=== PATIENT | male | born 1955 | race American Indian/Alaskan Native ===

== ENCOUNTER 2016-05-30 16:38 | Emergency (ER) | payer SELFPAY ==
--- NOTE | 2016-05-30 17:15 | Emergency Department Report ---
Stated Complaint: CHEST PAIN Time Seen by Provider: 05/30/16 17:03 - HPI History of Present Illness: 60-year-old male comes in for complaint of intermittent chest pains. Patient was seen by his primary care provider on Wednesday and was referred to Dr. Luis Manuel Rojas's industrial insulator for further evaluation. Family tried calling Dr. Levin. Office was not able to obtain an appointment. The was going to call on Wednesday to another industrial insulator but was told that her is having chest pain now so she advised him to come to the emergency room for further evaluation.patient denies any past medical history but does admit that his blood pressure has been borderline up and down but has not started any medication from his primary care provider - ROS Review of Systems: He is in no acute distress. Cardiovascular S1-S2 regular rate and rhythm respiratory clear to auscultation. - Exam Vital Signs: Patient is alert and oriented 3 cardiovascular S1-S2 regular rate and rhythm respiratory clear to auscultation bilateral MSE screening note: Focused history and physical exam performed. Due to findings the following was ordered: Labs ordered for chest pain. Patient be evaluated in main ER ED Medical Decision Making - Lab Data Result diagrams: 05/30/16 17:18 05/30/16 17:18 ED Disposition for MSE Condition: Stable
[2016-05-30 17:28] VITALS: BP 142/86
[2016-05-30 17:43] LABS: Basophils % (Auto) 0.9 % (0.0-1.8); Eosinophils % (Auto) 7.2 % (0.0-4.3); Hematocrit 43.7 % (35.5-45.6); Hemoglobin 14.5 gm/dl (11.8-15.2); Mean Corpuscular HGB Conc 33 % (32-34); Mean Corpuscular Hemoglobin 30 pg (28-32); Mean Corpuscular Volume 90 fl (84-94); Platelet Count 186 K/mm3 (140-440); Red Blood Count 4.85 M/mm3 (3.65-5.03); Red Cell Distribution Width 14.8 % (13.2-15.2); White Blood Count 4.8 K/mm3 (4.5-11.0)
[2016-05-30 17:52] LABS: Anion Gap 19 mmol/L; BUN/Creatinine Ratio 14.44; Blood Urea Nitrogen 13 mg/dL (9-20); Calcium 9.1 mg/dL (8.4-10.2); Carbon Dioxide 24 mmol/L (22-30); Chloride 103.9 mmol/L (98-107); Glucose 86 mg/dL (75-100); Potassium 4.5 mmol/L (3.6-5.0); Sodium 142 mmol/L (137-145)
[2016-05-30 17:59] LABS: Creatine Kinase MB 1.4 ng/mL (0.0-4.0)
--- NOTE | 2016-05-31 17:36 | ED Elopement Review ---
ED Pt Elopement review - Results review Lab results: Laboratory Tests 05/30/16 05/30/16 05/30/16 17:18 17:18 17:18 WBC 4.8 RBC 4.85 Hgb 14.5 Hct 43.7 MCV 90 MCH 30 MCHC 33 RDW 14.8 Plt Count 186 Lymph % (Auto) 42.0 H [place] % (Auto) 10.3 H Eos % (Auto) 7.2 H Baso % (Auto) 0.9 Lymph # 2.0 [place] # 0.5 Eos # 0.3 Baso # 0.0 Seg Neutrophils % 39.6 L Seg Neutrophils # 1.9 Sodium 142 Potassium 4.5 Chloride 103.9 Carbon Dioxide 24 Anion Gap 19 BUN 13 Creatinine 0.9 Estimated GFR > 60 BUN/Creatinine Ratio 14.44 Glucose 86 Calcium 9.1 Total Creatine Kinase 173 H CK-MB (CK-2) 1.4 CK-MB (CK-2) Rel Index 0.8 Troponin T 0.011 - Call Back decision Pt Call Back Decision: Pt to F/U with PMD
== END 2016-05-30 22:05 | disposition left against medical advice (07) ==
LOC: ED 16:38
DX: R07.9 Chest pain, unspecified (principal); Z53.21 Procedure and treatment not carried out due to patient leaving prior to being seen by health care provider
CPT/HCPCS: 36415; 80048; 82550; 82553; 84484; 85025; 93005; 93010

== ENCOUNTER 2017-12-22 10:43 | Outpatient (CLI) | payer BC ==
[2017-12-22 11:35] LABS: Basophils % (Auto) 1.1 % (0.0-1.8); Eosinophils # (Auto) 0.3 K/mm3 (0.0-0.4); Eosinophils % (Auto) 10.1 % (0.0-4.3); Hematocrit 44.8 % (35.5-45.6); Hemoglobin 14.6 gm/dl (11.8-15.2); Lymphocytes # (Auto) 1.4 K/mm3 (1.2-5.4); Lymphocytes % (Auto) 42.4 % (13.4-35.0); Mean Corpuscular HGB Conc 33 % (32-34); Mean Corpuscular Hemoglobin 30 pg (28-32); Mean Corpuscular Volume 92 fl (84-94); Monocytes # (Auto) 0.3 K/mm3 (0.0-0.8); Monocytes % (Auto) 9.8 % (0.0-7.3); Platelet Count 193 K/mm3 (140-440); Red Blood Count 4.85 M/mm3 (3.65-5.03); Red Cell Distribution Width 14.6 % (13.2-15.2)
[2017-12-22 11:45] LABS: Alanine Aminotransferase 18 units/L (7-56); Albumin 4.2 g/dL (3.9-5); BUN/Creatinine Ratio 13; Blood Urea Nitrogen 10 mg/dL (9-20); Calcium 9.3 mg/dL (8.4-10.2); Chol/HDL Ratio 3.02 %; HDL Cholesterol 69 mg/dL (40-59); Hemolysis Index 5; LDL Cholesterol,Direct 151 mg/dL (50-130)
== END 2017-12-22 10:44 | disposition home or self-care (01) ==
LOC: LAB 10:43
PROVIDERS: ATTEND Internal Medicine
DX: Z00.01 Encounter for general adult medical examination with abnormal findings (principal)
CPT/HCPCS: 36415; 80053; 80061; 82306; 83036; 84153; 84439; 84443; 85025

== ENCOUNTER 2018-06-24 15:47 | Outpatient (CLI) | payer BC | END 2018-06-24 15:48 | disposition home or self-care (01) | LOC: LAB 15:47 | PROVIDERS: ATTEND Urology | DX: N40.0 Benign prostatic hyperplasia without lower urinary tract symptoms (principal) | CPT/HCPCS: 36415; 84153 ==

== ENCOUNTER 2019-02-23 10:57 | Outpatient (CLI) | payer BC ==
[2019-02-23 11:33] LABS: Hematocrit 46.3 % (35.5-45.6); Hemoglobin 15.1 gm/dl (11.8-15.2); Mean Corpuscular HGB Conc 33 % (32-34); Mean Corpuscular Volume 94 fl (84-94); Platelet Count 175 K/mm3 (140-440); Red Cell Distribution Width 14.2 % (13.2-15.2)
[2019-02-23 11:46] LABS: Alanine Aminotransferase 17 units/L (7-56); Albumin 4.5 g/dL (3.9-5); BUN/Creatinine Ratio 13; Blood Urea Nitrogen 12 mg/dL (9-20); Calcium 9.3 mg/dL (8.4-10.2); Chol/HDL Ratio 2.76 %; HDL Cholesterol 77 mg/dL (40-59); Hemolysis Index 3; LDL Cholesterol,Direct 132 mg/dL (50-130)
[2019-02-27 13:20] LABS: Vitamin D, 25-OH, D2 <4 ng/mL
== END 2019-02-23 10:58 | disposition home or self-care (01) ==
LOC: LAB 10:57
PROVIDERS: ATTEND Internal Medicine
DX: Z13.220 Encounter for screening for lipoid disorders (principal); Z13.29 Encounter for screening for other suspected endocrine disorder; Z13.0 Encounter for screening for diseases of the blood and blood-forming organs and certain disorders involving the immune mechanism; Z13.228 Encounter for screening for other metabolic disorders; Z12.5 Encounter for screening for malignant neoplasm of prostate; Z13.21 Encounter for screening for nutritional disorder
CPT/HCPCS: 36415; 80053; 80061; 82306; 83036; 84153; 84443; 85027

== ENCOUNTER 2019-05-25 08:53 | Day surgery (SDC) | payer BC ==
[~2019-05-25 08:53] MED LIST: LIDOCAINE MPF (2%) 20 MG/1 ML VIAL 5 ML ONE; SODIUM CHLORIDE 0.9% 1000 ML 1,000 ML IV SCH
--- NOTE | 2019-05-25 12:41 | Anesthesia Consultation ---
Anesthesia Consult and Med Hx Date of service: 05/25/19 - Airway Anesthetic Teeth Evaluation: Good ROM Head & Neck: Adequate Mental/Hyoid Distance: Adequate Mallampati Class: Class II Intubation Access Assessment: Probably Good - Pulmonary Exam CTA: Yes - Cardiac Exam Cardiac Exam: RRR - Pre-Operative Health Status ASA Pre-Surgery Classification: ASA2 Proposed Anesthetic Plan: MAC - Pulmonary Hx Smoking: No - Cardiovascular System Hx Hypertension: No - Central Nervous System Hx Neuromuscular Disorder: No Hx Psychiatric Problems: No - Gastrointestinal Hx Gastroesophageal Reflux Disease: No - Endocrine Hx Renal Disease: No - Other Systems Hx Alcohol Use: No Hx Substance Use: No Hx Cancer: No - Additional Comments Anesthesia Medical History Comments: Patient denies previous anesthesia related complications
--- NOTE | 2019-05-25 12:42 | Anesthesia Day of Surgery ---
Anesthesia Day of Surgery - Day of Surgery Patient Examined: Yes Patient H&P Reviewed: Yes Patient is NPO: Yes
[2019-05-25] MEDS ORDERED: PROPOFOL 200 MG/20 ML VIAL IV ONE ×2 (12:44)
--- NOTE | 2019-05-25 13:07 | Short Stay Summary ---
Short Stay Documentation Date of service: 05/25/19 Narrative H&P: Pt is a 63 yo male who presents for screening colonoscopy; no new gi complaints/changes from clinic note - History H&P: obtained from office Past Medical History: other (see clinic note) Past Surgical History: Other (see clinic note) Social history: no significant social history - Allergies and Medications Current Medications: Allergies No Known Allergies Allergy (Unverified 05/30/16 17:08) Active Medications Sodium Chloride (Nacl 0.9% 1000 Ml) 1,000 mls @ 50 mls/hr IV DIRECT TANESHA - Physical exam General appearance: no acute distress Lungs: Clear to auscultation Heart: Regular rate Gastrointestinal: normal - Brief post op/procedure progress note Date of procedure: 05/25/19 Pre-op diagnosis: screening for colorectal cancer Post-op diagnosis: other (fair prep, internal hemorrhoids) Procedure: Colonoscopy Anesthesia: MAC Findings: Fair prep, internal hemorrhoids Surgeon: JASE CRUZ Estimated blood loss: none Pathology: none Specimen disposition: to lab Condition: stable - Disposition Condition at discharge: Good Disposition: DC-01 TO HOME OR SELFCARE Short Stay Discharge Plan Follow up with: GENET AYALA MD [Primary Care Provider] - 7 Days
--- NOTE | 2019-05-25 13:09 | Operative Report ---
Operative Report Operative Report: Colonoscopy Procedure Note Date of procedure: 05/25/2019 Endoscopist: William Salcedo Pre-op diagnosis: Screening for colorectal cancer Post-op diagnosis: Internal hemorrhoids Anesthesia: MAC Complications: No immediate complications Estimated blood loss: None Procedure: After consent was obtained, the patient was placed in the left lateral decubitus position. The olympus colonoscope was inserted into the patient's rectum under direct vision, and advanced to the cecum without difficulty. The patient tolerated the procedure well. The views of the mucosa were fair. The quality of prep was fair. The patient's vital signs were monitored continuously throughout the procedure. Findings: Internal hemorrhoids, otherwise unremarkable colonoscopy. Impression: 1. Fair prep 2. Internal hemorrhoids Recommendations: -repeat colonoscopy for screening purposes in 5 years due to fair prep
[2019-05-25 14:37] VITALS: BP 111/63
== END 2019-05-25 08:54 | disposition home or self-care (01) ==
LOC: GIO 08:53
PROVIDERS: ATTEND Internal Medicine Gastroenterology
DX: Z12.11 Encounter for screening for malignant neoplasm of colon (principal); K64.8 Other hemorrhoids; Z79.899 Other long term (current) drug therapy; Z98.890 Other specified postprocedural states
CPT/HCPCS: 45378; J2704; J7030

== ENCOUNTER 2020-02-15 16:06 | Outpatient (CLI) | payer BC ==
[2020-02-15 16:58] LABS: BUN/Creatinine Ratio 15; Blood Urea Nitrogen 12 mg/dL (9-20); Calcium 9.6 mg/dL (8.4-10.2); Hemolysis Index 13
== END 2020-02-15 16:07 | disposition home or self-care (01) ==
LOC: LAB 16:06
PROVIDERS: ATTEND Urology
DX: N40.1 Benign prostatic hyperplasia with lower urinary tract symptoms (principal)
CPT/HCPCS: 36415; 80048

== ENCOUNTER 2020-05-08 10:23 | Inpatient (IN) | payer BC ==
--- NOTE | 2020-05-08 10:39 | Event Note ---
ED Screening Note ED Screening Note: Recently traveled from [facility] Weakness, fatigue, no appetite No chest pain or shortness of breath Hypoxia at 89 to 91% on room air Patient placed on oxygen This initial assessment/diagnostic orders/clinical plan/treatment(s) is/are subject to change based on patients health status, clinical progression and re- assessment by fellow clinical providers in the ED. Further treatment and workup at subsequent clinical providers discretion. Patient/guardian urged not to elope from the ED as their condition may be serious if not clinically assessed and managed. Initial orders include: Labs, EKG, chest x-ray Charge nurse Tracie notified that patient needs room GINA
--- NOTE | 2020-05-08 11:43 | XRay Report ---
CHEST 2 VIEWS INDICATION: weakness, hypoxia. COMPARISON: None FINDINGS: Support devices: None. Heart: Within normal limits. Lungs/pleura: Bronchovascular markings in the right lower lobe are slightly prominent. This has the a ppearance of atelectasis or scarring over infiltrate. The left lung is generally clear. No pleural e ffusion or pneumothorax. Additional findings: None. IMPRESSION: Right lower lobe opacity as described. Signer Name: Cody Jack Jr, MD Signed: 05/08/2020 11:38 AM Workstation Name: [id number]
[2020-05-08 12:52] LABS: Basophils # (Auto) 0.1 K/mm3 (0.0-0.1); Hematocrit 42.1 % (35.5-45.6); Hemoglobin 14.5 gm/dl (11.8-15.2); Lymphocytes # (Auto) 0.8 K/mm3 (1.2-5.4); Lymphocytes % (Auto) 14.3 % (13.4-35.0); Mean Corpuscular HGB Conc 34 % (32-34); Mean Corpuscular Volume 91 fl (84-94); Monocytes # (Auto) 0.6 K/mm3 (0.0-0.8); Monocytes % (Auto) 10.2 % (0.0-7.3); Platelet Count 197 K/mm3 (140-440); Red Blood Count 4.63 M/mm3 (3.65-5.03); Red Cell Distribution Width 14.4 % (13.2-15.2)
[2020-05-08 13:16] LABS: Alanine Aminotransferase 49 units/L (7-56); Albumin 3.6 g/dL (3.9-5); BUN/Creatinine Ratio 10; Blood Urea Nitrogen 11 mg/dL (9-20); Calcium 9.1 mg/dL (8.4-10.2); Hemolysis Index 6
[2020-05-08] MEDS ORDERED: cefTRIAXone/NS 2 GM/100 ML 2 GM/100 ML BAG IV ONE (13:27)
[2020-05-08] MEDS ORDERED: ACETAMINOPHEN 325 MG TAB PO ONE (13:27)
[2020-05-08] MEDS ORDERED: AZITHROMYCIN 500 MG in SODIUM CHLORIDE 0.9% 250ML 250 ML IV ONE (13:27)
[2020-05-08] MEDS ORDERED: SODIUM CHLORIDE 0.9% 1000 ML 1,000 ML IV ONE (13:28)
[2020-05-08] MEDS ORDERED: dexAMETHasone 4 MG/ML VIAL IV ONE (14:56)
--- NOTE | 2020-05-08 15:25 | Emergency Department Report ---
- General Chief complaint: Weakness Stated complaint: WEAKNESS, LOSS OF APPETITE Time Seen by Provider: 05/08/20 10:36 Source: patient, family Mode of arrival: Ambulatory Limitations: No Limitations - History of Present Illness Initial comments: 64-year-old male with a past medical history of BPH presents to the hospital with complaints of generalized weakness and no appetite x1 week. Respiratory rate was noted to be labored in triage patient had a room air saturation of 89 to 91%. Patient however, does not complain of shortness of breath, chest pain, cough, or fever. He is noted coughing during exam but states that because his throat feels dry. He reports that he had a negative Covid test on May 01. Patient thought his symptoms would have something to do with his prostate however, he does not endorse difficulty urinating, dysuria, or abdominal pain. - Related Data Home Medications Medication Instructions Recorded Confirmed Last Taken Mirabegron [Myrbetriq] 50 mg PO QDAY 05/25/19 05/25/19 05/24/19 Tamsulosin [Flomax] 0.8 mg PO QDAY 05/25/19 05/25/19 05/24/19 valACYclovir [Valtrex] 500 mg PO DAILY 05/25/19 05/25/19 05/24/19 Allergies Allergy/AdvReac Type Severity Reaction Status Date / Time No Known Allergies Allergy Unverified 05/30/16 17:08 ED Review of Systems ROS: Stated complaint: WEAKNESS, LOSS OF APPETITE Other details as noted in HPI Comment: All other systems reviewed and negative ED Past Medical Hx - Past Medical History Hx Hypertension: No Hx Renal Disease: No Additional medical history: ENLARGED PROSTRATE - Surgical History Additional Surgical History: prostate 2010 - Social History Smoking Status: Never Smoker Substance Use Type: None - Medications Home Medications: Home Medications Medication Instructions Recorded Confirmed Last Taken Type Mirabegron [Myrbetriq] 50 mg PO QDAY 05/25/19 05/25/19 05/24/19 History Tamsulosin [Flomax] 0.8 mg PO QDAY 05/25/19 05/25/19 05/24/19 History valACYclovir [Valtrex] 500 mg PO DAILY 05/25/19 05/25/19 05/24/19 History ED Physical Exam - General Limitations: No Limitations - Other Other exam information: General: No acute distress Head: Atraumatic Eyes: normal appearance Neck: Normal appearance, no midline tenderness Chest: Clear to auscultation bilaterally CV: Regular rate and rhythm Abdomen: Soft, normal bowel sounds, nontender, nondistended, no rebound or guarding Back: Normal inspection Extremity: Normal inspection, full range of motion Neuro: Alert O x 3, no facial asymmetry, speech clear, no gross motor sensory deficit Psych: Appropriate behavior Skin: No rash ED Course Vital Signs 05/08/20 10:31 Temperature 99.9 F H Pulse Rate 93 H Respiratory 22 Rate Blood Pressure 123/70 O2 Sat by Pulse 91 Oximetry ED Medical Decision Making - Lab Data Result diagrams: 05/08/20 12:13 05/08/20 12:13 Lab Results 05/08/20 05/08/20 05/08/20 Range/Units 12:13 12:13 12:13 WBC 5.6 (4.5-11.0) K/mm3 RBC 4.63 (3.65-5.03) M/mm3 Hgb 14.5 (11.8-15.2) gm/dl Hct 42.1 (35.5-45.6) % MCV 91 (84-94) fl MCH 31 (28-32) pg MCHC 34 (32-34) % RDW 14.4 (13.2-15.2) % Plt Count 197 (140-440) K/mm3 Lymph % (Auto) 14.3 (13.4-35.0) % Price % (Auto) 10.2 H (0.0-7.3) % Eos % (Auto) 0.0 (0.0-4.3) % Baso % (Auto) 1.0 (0.0-1.8) % Lymph # (Auto) 0.8 L (1.2-5.4) K/mm3 Price # (Auto) 0.6 (0.0-0.8) K/mm3 Eos # (Auto) 0.0 (0.0-0.4) K/mm3 Baso # (Auto) 0.1 (0.0-0.1) K/mm3 Seg Neutrophils % 74.5 H (40.0-70.0) % Seg Neutrophils # 4.2 (1.8-7.7) K/mm3 D-Dimer 798.85 H (0-234) ng/mlDDU Sodium 147 H (137-145) mmol/L Potassium 3.8 (3.6-5.0) mmol/L Chloride 107.5 H (98-107) mmol/L Carbon Dioxide 27 (22-30) mmol/L Anion Gap 16 mmol/L BUN 11 (9-20) mg/dL Creatinine 1.1 (0.8-1.3) mg/dL Estimated GFR > 60 ml/min BUN/Creatinine Ratio 10 % Glucose 131 H (75-100) mg/dL Lactic Acid (0.7-2.0) mmol/L Calcium 9.1 (8.4-10.2) mg/dL Ferritin (30.0-300.0) ng/mL Total Bilirubin 0.50 (0.1-1.2) mg/dL AST 72 H (5-40) units/L ALT 49 (7-56) units/L Alkaline Phosphatase 59 (35-129) units/L Lactate Dehydrogenase 448 H (91-180) units/L Troponin T < 0.010 (0.00-0.029) ng/mL C-Reactive Protein 7.30 H (0.00-1.30) mg/dL NT-Pro-B Natriuret Pep 18.79 (0-900) pg/mL Total Protein 8.4 H (6.3-8.2) g/dL Albumin 3.6 L (3.9-5) g/dL Albumin/Globulin Ratio 0.8 % Procalcitonin (<0.15) ng/mL 05/08/20 05/08/20 05/08/20 Range/Units 12:13 12:13 12:13 WBC (4.5-11.0) K/mm3 RBC (3.65-5.03) M/mm3 Hgb (11.8-15.2) gm/dl Hct (35.5-45.6) % MCV (84-94) fl MCH (28-32) pg MCHC (32-34) % RDW (13.2-15.2) % Plt Count (140-440) K/mm3 Lymph % (Auto) (13.4-35.0) % Price % (Auto) (0.0-7.3) % Eos % (Auto) (0.0-4.3) % Baso % (Auto) (0.0-1.8) % Lymph # (Auto) (1.2-5.4) K/mm3 Price # (Auto) (0.0-0.8) K/mm3 Eos # (Auto) (0.0-0.4) K/mm3 Baso # (Auto) (0.0-0.1) K/mm3 Seg Neutrophils % (40.0-70.0) % Seg Neutrophils # (1.8-7.7) K/mm3 D-Dimer (0-234) ng/mlDDU Sodium (137-145) mmol/L Potassium (3.6-5.0) mmol/L Chloride (98-107) mmol/L Carbon Dioxide (22-30) mmol/L Anion Gap mmol/L BUN (9-20) mg/dL Creatinine (0.8-1.3) mg/dL Estimated GFR ml/min BUN/Creatinine Ratio % Glucose (75-100) mg/dL Lactic Acid 2.90 H* (0.7-2.0) mmol/L Calcium (8.4-10.2) mg/dL Ferritin 1993.0 H (30.0-300.0) ng/mL Total Bilirubin (0.1-1.2) mg/dL AST (5-40) units/L ALT (7-56) units/L Alkaline Phosphatase (35-129) units/L Lactate Dehydrogenase (91-180) units/L Troponin T (0.00-0.029) ng/mL C-Reactive Protein (0.00-1.30) mg/dL NT-Pro-B Natriuret Pep (0-900) pg/mL Total Protein (6.3-8.2) g/dL Albumin (3.9-5) g/dL Albumin/Globulin Ratio % Procalcitonin 0.13 (<0.15) ng/mL - Radiology Data Radiology results: report reviewed CHEST 2 VIEWS INDICATION: weakness, hypoxia. COMPARISON: None FINDINGS: Support devices: None. Heart: Within normal limits. Lungs/pleura: Bronchovascular markings in the right lower lobe are slightly prominent. This has the appearance of atelectasis or scarring over infiltrate. The left lung is generally clear. No pleural effusion or pneumothorax. Additional findings: None. IMPRESSION: Right lower lobe opacity as described. - Medical Decision Making 64-year-old male with history of BPH presents to the hospital with weakness, fatigue, decreased appetite. The patient does not have any respiratory symptoms he does have visible tachypnea, hypoxia monitor, chest x-ray significant for right lower lobe infiltrate. Patient placed in respiratory isolation with Covid test protocol ordered. Rocephin and azithromycin ordered for community- acquired pneumonia. Dexamethasone 6 mg IV x1. ID has been consulted. O2 saturation improved with supplemental nasal cannula oxygen. Patient will be admitted to the hospital service for further treatment Critical Care Time: No Critical care attestation.: If time is entered above; I have spent that time in minutes in the direct care of this critically ill patient, excluding procedure time. ED Disposition Clinical Impression: Pneumonia, Suspected COVID-19 virus infection, Hypoxia Disposition: OP ADMIT IP TO THIS HOSP Is pt being admited?: Yes Condition: Stable Instructions: Bacterial Pneumonia (ED) Time of Disposition: 15:51 (Dr Shook/hosp)
--- NOTE | 2020-05-08 15:29 | History and Physical Report ---
History of Present Illness Chief complaint: I have not been feeling well History of present illness: 64 YO Male with BPH presents to ED for evaluation. Patient states that he has "not been feeling well" over the past 1 week. Patient reports loss of appetite, fatigue, malaise, decreased exercise tolerance, loss of sense of smell, loss of sense of taste, dry cough. Patient transported to [facility] via private vehicle for further care and evaluation of the aforementioned symptoms. The patient was seen and evaluated in the emergency department. All lab and imaging studies reviewed. The patient was found to have a pulse oximetry of 86% with exertion while on room air which is consistent with acute hypoxemic respiratory failure. Chest x-ray also revealed pneumonia. The patient was admitted to the medical floor and initiated on pneumonia protocol as well as coronavirus protocol. The patient was placed on submental oxygen in the emergency department with mild improvement in symptoms. Patient denies fever, chills, chest pain, palpitations, skin rash, recent ill contacts, or known exposure to COVID-19. No prior admission for review. All medication listed at time of admission has been reconciled. Advanced care planning conducted in ED. Past History Past Medical History: other (See HPI) Past Surgical History: Other (Prostate surgery) Social history: , lives with family. denies: smoking, alcohol abuse, prescription drug abuse Family history: no significant family history Medications and Allergies Allergies Allergy/AdvReac Type Severity Reaction Status Date / Time No Known Allergies Allergy Unverified 05/30/16 17:08 Home Medications Medication Instructions Recorded Confirmed Last Taken Type Mirabegron [Myrbetriq] 50 mg PO QDAY 05/25/19 05/25/19 05/24/19 History Tamsulosin [Flomax] 0.8 mg PO QDAY 05/25/19 05/25/19 05/24/19 History valACYclovir [Valtrex] 500 mg PO DAILY 05/25/19 05/25/19 05/24/19 History Review of Systems Constitutional: fatigue, weakness, malaise, no weight loss, no weight gain, no fever Ears, nose, mouth and throat: no ear pain, no ear discharge, no tinnitis, no decreased hearing, no nose pain Cardiovascular: no chest pain, no orthopnea, no palpitations Respiratory: cough, no hemoptysis Gastrointestinal: no nausea, no vomiting, no diarrhea, no constipation Rectal: no pain, no incontinence, no bleeding Musculoskeletal: no neck stiffness, no neck pain, no shooting arm pain Integumentary: no rash, no pruritis, no redness, no sores, no wounds Neurological: no head injury, no transient paralysis, no tingling, no syncope, no tremors Psychiatric: no anxiety, no memory loss, no sleep disturbances, no change in libido, no suicidal ideation Endocrine: no cold intolerance, no heat intolerance, no polyphagia, no polydipsia, no nocturia, no excessive sweating Hematologic/Lymphatic: no easy bruising, no easy bleeding, no lymphadenopathy, no lymphedema Allergic/Immunologic: no urticaria, no allergic rhinitis, no persistent infections, no anaphylaxis, no angioedema Exam - Constitutional Vitals: Temp Pulse Resp BP Pulse Ox 99.9 F H 93 H 22 123/70 91 05/08/20 10:31 05/08/20 10:31 05/08/20 10:31 05/08/20 10:31 05/08/20 10:31 General appearance: Present: mild distress (Unicompartmental) - EENT Eyes: Present: PERRL ENT: hearing intact - Neck Neck: Present: supple - Respiratory Respiratory effort: labored, accessory muscle use Respiratory: bilateral: diminished, rhonchi - Cardiovascular Heart Sounds: Present: S1 & S2. Absent: rub, click - Extremities Extremities: pulses symmetrical, No edema Peripheral Pulses: within normal limits - Abdominal General gastrointestinal: Present: soft, non-tender, non-distended, normal bowel sounds Male genitourinary: Present: normal - Integumentary Integumentary: Present: clear, warm, dry - Musculoskeletal Musculoskeletal: generalized weakness - Psychiatric Psychiatric: appropriate mood/affect, intact judgment & insight - Neurologic Neurologic: CNII-XII intact, moves all extremities HEART Score - HEART Score Troponin: Troponin T < 0.010 ng/mL (0.00-0.029) 05/08/20 12:13 Results - Labs CBC & Chem 7: 05/08/20 12:13 05/08/20 12:13 Labs: Abnormal lab results 05/08/20 05/08/20 05/08/20 Range/Units 12:13 12:13 12:13 [place] % (Auto) 10.2 H (0.0-7.3) % Lymph # (Auto) 0.8 L (1.2-5.4) K/mm3 Seg Neutrophils % 74.5 H (40.0-70.0) % D-Dimer 798.85 H (0-234) ng/mlDDU Sodium 147 H (137-145) mmol/L Chloride 107.5 H (98-107) mmol/L Glucose 131 H (75-100) mg/dL Lactic Acid (0.7-2.0) mmol/L Ferritin (30.0-300.0) ng/mL AST 72 H (5-40) units/L Lactate Dehydrogenase 448 H (91-180) units/L C-Reactive Protein 7.30 H (0.00-1.30) mg/dL Total Protein 8.4 H (6.3-8.2) g/dL Albumin 3.6 L (3.9-5) g/dL 05/08/20 05/08/20 Range/Units 12:13 12:13 [place] % (Auto) (0.0-7.3) % Lymph # (Auto) (1.2-5.4) K/mm3 Seg Neutrophils % (40.0-70.0) % D-Dimer (0-234) ng/mlDDU Sodium (137-145) mmol/L Chloride (98-107) mmol/L Glucose (75-100) mg/dL Lactic Acid 2.90 H* (0.7-2.0) mmol/L Ferritin 1993.0 H (30.0-300.0) ng/mL AST (5-40) units/L Lactate Dehydrogenase (91-180) units/L C-Reactive Protein (0.00-1.30) mg/dL Total Protein (6.3-8.2) g/dL Albumin (3.9-5) g/dL Assessment and Plan - Patient Problems (1) Acute hypoxemic respiratory failure Current Visit: Yes Status: Acute Plan to address problem: Chest x-ray, supplemental oxygen, pulse oximetry, nebulizer therapy, prone positioning while in bed, noninvasive positive pressure ventilation as clinically indicated. (2) Pneumonia Current Visit: Yes Status: Acute Plan to address problem: Pneumonia protocol: Chest x-ray, CBC, CMP, IV antibiotic therapy, nebulizer therapy, supplemental oxygen, pulse oximetry, blood culture. (3) Suspected 2019 novel coronavirus infection Current Visit: Yes Status: Acute Plan to address problem: Coronavirus protocol: Contact precautions, isolation precautions, supplemental oxygen, pulse oximetry, nebulizer therapy, prone positioning while in bed, (4) BPH (benign prostatic hyperplasia) Current Visit: Yes Status: Acute Plan to address problem: Continue Flomax, supportive care. (5) DVT prophylaxis Current Visit: Yes Status: Acute Plan to address problem: SCD to bilateral lower extremities while in bed, prophylactic anticoagulation. (6) Advance care planning Current Visit: Yes Status: Acute Plan to address problem: Disease education conducted, patient is full code, prognosis discussed, care plan discussed, patient knowledges understanding and agreement with care plan, +30 minutes.
[2020-05-08] MEDS ORDERED: ONDANSETRON 4 MG/2 ML INJ IV PRN (15:30)
[2020-05-08] MEDS ORDERED: ALBUTEROL 2.5 MG/3 ML NEBU IH PRN (15:30)
[2020-05-08] MEDS ORDERED: ACETAMINOPHEN 325 MG TAB PO PRN (15:30)
[2020-05-08] MEDS ORDERED: SODIUM CHLORIDE 0.9% 1000 ML IV SOLN IV ONE (16:03)
[2020-05-08] MEDS: methylPREDNISolone Sod Succinate 40 MG/1 ML INJ IV SCH (20:50)
[2020-05-08] MEDS: FAMOTIDINE 10 MG TAB PO SCH (22:12)
[2020-05-08] MEDS: valACYclovir 500 MG TAB PO SCH (22:15)
[2020-05-09] MEDS: methylPREDNISolone Sod Succinate 40 MG/1 ML INJ IV SCH ×3 (02:11→21:44)
[2020-05-09 03:18] LABS: Bilirubin,Urine NEG (Negative); Blood,Urine SM (Negative); Color,Urine Yellow (Yellow); RBC,Urine < 1.0 /HPF (0.0-6.0); Urobilinogen,Urine < 2.0 mg/dL (<2.0)
[2020-05-09 06:18] LABS: Basophils % (Auto) 0.4 % (0.0-1.8); Hemoglobin 12.3 gm/dl (11.8-15.2); Lymphocytes # (Auto) 0.6 K/mm3 (1.2-5.4); Mean Corpuscular HGB Conc 33 % (32-34); Mean Corpuscular Volume 93 fl (84-94); Monocytes # (Auto) 0.4 K/mm3 (0.0-0.8); Monocytes % (Auto) 8.6 % (0.0-7.3); Platelet Count 168 K/mm3 (140-440); Red Blood Count 3.98 M/mm3 (3.65-5.03); Red Cell Distribution Width 14.3 % (13.2-15.2)
[2020-05-09 06:41] LABS: BUN/Creatinine Ratio 12; Blood Urea Nitrogen 11 mg/dL (9-20); Calcium 8.7 mg/dL (8.4-10.2); Hemolysis Index 7
[2020-05-09] MEDS: FAMOTIDINE 10 MG TAB PO SCH ×2 (09:54→21:43)
[2020-05-09] MEDS: valACYclovir 500 MG TAB PO SCH (09:54)
[2020-05-09] MEDS: TAMSULOSIN 0.4 MG CAP PO SCH (09:55)
--- NOTE | 2020-05-09 12:41 | Consultation ---
History of Present Illness - Reason for Consult Consult date: 05/09/20 COVID PUI Requesting physician: CESAR SANTIAGO - History of Present Illness The patient is a 64-year-old male admitted to the hospital with fatigue, malaise, loss of smell, loss of taste, cough and shortness of breath for the last 1 week. Upon evaluation in the emergency room, he was noted to have hypoxia on ambulation. Chest x-ray revealed possible pneumonia. COVID-19 test was ordered and is pending. Infectious diseases was consulted for additional evaluation. He had a low-grade temperature on admission, no fever today. He is on supplemental oxygen by nasal cannula at 2 L/min. Labs revealed no leukocytosis, mildly elevated D-dimer, elevated ferritin, CRP. Procalcitonin was 0.13. Review of Systems: reviewed in the chart, unable to obtain, minimize risk of transmission Past History Past Medical History: other (See HPI) Past Surgical History: Other (Prostate surgery) Social history: , lives with family. denies: smoking, alcohol abuse, prescription drug abuse Family history: no significant family history Medications and Allergies Allergies Allergy/AdvReac Type Severity Reaction Status Date / Time No Known Allergies Allergy Unverified 05/30/16 17:08 Home Medications Medication Instructions Recorded Confirmed Last Taken Type Mirabegron [Myrbetriq] 50 mg PO QDAY 05/25/19 05/25/19 05/24/19 History Tamsulosin [Flomax] 0.8 mg PO QDAY 05/25/19 05/25/19 05/24/19 History valACYclovir [Valtrex] 500 mg PO DAILY 05/25/19 05/25/19 05/24/19 History Active Meds: Active Medications Acetaminophen (Acetaminophen 325 Mg Tab) 650 mg PO Q4H PRN PRN Reason: Pain MILD(1-3)/Fever >100.5/ANTHONY Albuterol (Albuterol 2.5 Mg/3 Ml Nebu) 2.5 mg IH Q4HRT PRN PRN Reason: Shortness Of Breath Famotidine (Famotidine 10 Mg Tab) 10 mg PO BID [facility] Last Admin: 05/09/20 09:54 Dose: 10 mg Documented by: Ceftriaxone Sodium (Rocephin/Ns 2 Gm/100 Ml) 2 gm in 100 mls @ 200 mls/hr IV Q24H TANESHA; Protocol Stop: 05/10/20 15:59 Azithromycin 500 mg/ Sodium (Chloride) 250 mls @ 250 mls/hr IV Q24H [facility]; Protocol Stop: 05/10/20 15:59 Methylprednisolone Sodium Succinate (Methylprednisolone Sod Succinate 40 Mg/1 Ml Inj) 40 mg IV Q8H [facility] Last Admin: 05/09/20 10:07 Dose: 40 mg Documented by: Miscellaneous Medication (Mirabegron [Myrbetriq]) 50 mg PO QDAY [facility] Ondansetron HCl (Ondansetron 4 Mg/2 Ml Inj) 4 mg IV Q8H PRN PRN Reason: Nausea And Vomiting Sodium Chloride (Sodium Chloride 0.9% 10 Ml Flush Syringe) 10 ml IV BID [facility] Last Admin: 05/09/20 09:58 Dose: 10 ml Documented by: Sodium Chloride (Sodium Chloride 0.9% 10 Ml Flush Syringe) 10 ml IV PRN PRN PRN Reason: LINE FLUSH Last Admin: 05/09/20 02:11 Dose: 10 ml Documented by: Tamsulosin HCl (Tamsulosin 0.4 Mg Cap) 0.8 mg PO QDAY [facility] Last Admin: 05/09/20 09:55 Dose: 0.8 mg Documented by: Valacyclovir HCl (Valacyclovir 500 Mg Tab) 500 mg PO DAILY [facility] Last Admin: 05/09/20 09:54 Dose: 500 mg Documented by: Physical Examination - Physical Exam Narrative exam: Physical Exam (reviewed in chart to minimize risk of transmission) Constitutional: deferred Head, Ears, Nose: deferred Eyes: deferred Neck: deferred Oral: deferred Cardiovascular: deferred Respiratory: deferred GI: deferred Musculoskeletal: deferred Skin: deferred Hem/Lymphatic: deferred Psych: deferred Neurological: deferred - Constitutional Vitals: Vital Signs Temp Pulse Resp BP Pulse Ox 98.0 F 63 18 120/71 96 05/09/20 05:24 05/09/20 05:24 05/09/20 05:24 05/09/20 05:24 05/09/20 09:39 Temperature -Last 24 Hours Temperature 98.0 F Temperature 97.8 F Results - Labs CBC & Chem 7: 05/09/20 04:24 05/09/20 04:24 Labs: Abnormal lab results 1205/08/20 05/08/20 Range/Units 12:13 12:13 12:13 Lymph % (Auto) (13.4-35.0) % [place] % (Auto) 10.2 H (0.0-7.3) % Lymph # (Auto) 0.8 L (1.2-5.4) K/mm3 Seg Neutrophils % 74.5 H (40.0-70.0) % D-Dimer 798.85 H (0-234) ng/mlDDU Sodium 147 H (137-145) mmol/L Chloride 107.5 H (98-107) mmol/L Glucose 131 H (75-100) mg/dL Lactic Acid (0.7-2.0) mmol/L Ferritin (30.0-300.0) ng/mL AST 72 H (5-40) units/L Lactate Dehydrogenase 448 H (91-180) units/L C-Reactive Protein 7.30 H (0.00-1.30) mg/dL Total Protein 8.4 H (6.3-8.2) g/dL Albumin 3.6 L (3.9-5) g/dL 05/08/20 05/08/20 05/09/20 Range/Units 12:13 12:13 04:24 Lymph % (Auto) 12.0 L (13.4-35.0) % [place] % (Auto) 8.6 H (0.0-7.3) % Lymph # (Auto) 0.6 L (1.2-5.4) K/mm3 Seg Neutrophils % 79.0 H (40.0-70.0) % D-Dimer (0-234) ng/mlDDU Sodium (137-145) mmol/L Chloride (98-107) mmol/L Glucose (75-100) mg/dL Lactic Acid 2.90 H* (0.7-2.0) mmol/L Ferritin 1993.0 H (30.0-300.0) ng/mL AST (5-40) units/L Lactate Dehydrogenase (91-180) units/L C-Reactive Protein (0.00-1.30) mg/dL Total Protein (6.3-8.2) g/dL Albumin (3.9-5) g/dL 05/09/20 Range/Units 04:24 Lymph % (Auto) (13.4-35.0) % [place] % (Auto) (0.0-7.3) % Lymph # (Auto) (1.2-5.4) K/mm3 Seg Neutrophils % (40.0-70.0) % D-Dimer (0-234) ng/mlDDU Sodium 146 H (137-145) mmol/L Chloride 112.8 H (98-107) mmol/L Glucose 152 H (75-100) mg/dL Lactic Acid (0.7-2.0) mmol/L Ferritin (30.0-300.0) ng/mL AST (5-40) units/L Lactate Dehydrogenase (91-180) units/L C-Reactive Protein (0.00-1.30) mg/dL Total Protein (6.3-8.2) g/dL Albumin (3.9-5) g/dL - Imaging and Cardiology Chest x-ray: report reviewed, image reviewed (right sided infiltrate) Assessment and Plan Cultures: SARS CoV2 PCR: Pending Blood culture: No growth A/P: 64/M with: #Right pneumonia: noted on CXR. WBC normal. Procal is low. #Acute hypoxic respiratory failure: On supplemental oxygen by nasal cannula. Recs: -High suspicion for COVID-19, if positive, start remdesivir and discontinue antibiotics since procalcitonin is low -Agree with empiric steroids Brigitte Orellana MD, FACP [facility] ([facility]) O: [phone] F: [phone]
[2020-05-09] MEDS ORDERED: AZITHROMYCIN 500 MG in SODIUM CHLORIDE 0.9% 250ML 250 ML IV SCH (16:00)
[2020-05-09] MEDS ORDERED: cefTRIAXone/NS 2 GM/100 ML 2 GM/100 ML BAG IV SCH (16:00)
--- NOTE | 2020-05-09 17:27 | Progress Note ---
Assessment and Plan --Acute hypoxemic respiratory failure Due to covid19 PNA cont supplemental oxygen, pulse oximetry, nebulizer therapy, prone positioning while in bed, noninvasive positive pressure ventilation as clinically indicated. -- RLL Pneumonia due to COVID 19 cont nebulizer therapy, supplemental oxygen, pulse oximetry, start on dexamethasone, will follow ID recommendation monitor inflammatory markers --2019 novel coronavirus infection COVID 19 PCR positive Coronavirus protocol: Contact precautions, isolation precautions, supplemental oxygen, pulse oximetry, nebulizer therapy, prone positioning while in bed, -- BPH (benign prostatic hyperplasia Continue Flomax, supportive care. --DVT prophylaxis SCD to bilateral lower extremities while in bed, prophylactic anticoagulation per covid protocol. -- Advance care planning Disease education conducted, patient is full code, prognosis discussed, care plan discussed, patient knowledges understanding and agreement with care plan, +30 minutes. 05/09: COVID 19 Positive. start on dexamethasone, remdesivir, stop abx, consult ID Subjective Date of service: 05/09/20 Interval history: Patient seen and examined he is on 2L n/c denies any chest pain c/o mild cough Objective - Constitutional Vitals: Vital Signs - 12hr 05/09/20 05/09/20 05/09/20 09:39 11:10 16:23 Temperature 97.8 F 97.4 F L Pulse Rate 56 L 59 L Respiratory 18 18 Rate Blood Pressure 130/78 134/81 O2 Sat by Pulse 96 98 97 Oximetry General appearance: Present: no acute distress, well-nourished - EENT Eyes: PERRL, EOM intact ENT: hearing intact, clear oral mucosa Ears: bilateral: normal - Neck Neck: supple, normal ROM - Respiratory Respiratory effort: normal Respiratory: bilateral: rales - Cardiovascular Rhythm: regular Heart Sounds: Present: S1 & S2. Absent: gallop, rub Extremities: pulses intact, No edema, normal color, Full ROM - Gastrointestinal General gastrointestinal: Present: soft, non-tender, non-distended, normal bowel sounds - Integumentary Integumentary: clear, warm, dry - Musculoskeletal Musculoskeletal: 1, strength equal bilaterally - Neurologic Neurologic: moves all extremities - Psychiatric Psychiatric: memory intact, appropriate mood/affect, intact judgment & insight - Labs CBC & Chem 7: 05/09/20 04:24 05/09/20 04:24 Labs: Abnormal lab results 05/09/20 05/09/20 05/09/20 Range/Units 04:24 04:24 10:20 Lymph % (Auto) 12.0 L (13.4-35.0) % [place] % (Auto) 8.6 H (0.0-7.3) % Lymph # (Auto) 0.6 L (1.2-5.4) K/mm3 Seg Neutrophils % 79.0 H (40.0-70.0) % Sodium 146 H (137-145) mmol/L Chloride 112.8 H (98-107) mmol/L Glucose 152 H (75-100) mg/dL Coronavirus (PCR) Positive A (Negative) HEART Score - HEART Score Troponin: Troponin T < 0.010 ng/mL (0.00-0.029) 05/08/20 12:13
[2020-05-09] MEDS: DEXAMETHASONE 2 MG TAB PO SCH (21:43)
[2020-05-09] MEDS: ASCORBIC ACID 500 MG TAB PO SCH (21:43)
[2020-05-09] MEDS: ZINC SULFATE 220 MG CAP PO SCH (21:43)
[2020-05-09] MEDS: APIXABAN 5 MG TAB PO SCH (21:43)
[2020-05-10] MEDS: methylPREDNISolone Sod Succinate 40 MG/1 ML INJ IV SCH ×2 (06:09→13:18)
[2020-05-10] MEDS: DEXAMETHASONE 2 MG TAB PO SCH ×3 (06:11→18:16)
[2020-05-10] MEDS: ASCORBIC ACID 500 MG TAB PO SCH ×2 (10:06→22:00)
[2020-05-10] MEDS: FAMOTIDINE 10 MG TAB PO SCH ×2 (10:06→22:00)
[2020-05-10] MEDS: TAMSULOSIN 0.4 MG CAP PO SCH (10:07)
[2020-05-10] MEDS: valACYclovir 500 MG TAB PO SCH (10:07)
[2020-05-10] MEDS: CHOLECALCIFEROL (VIT D3) 5,000 UNIT TAB PO SCH (10:07)
[2020-05-10] MEDS: APIXABAN 5 MG TAB PO SCH ×2 (10:07→22:01)
[2020-05-10] MEDS: ZINC SULFATE 220 MG CAP PO SCH ×2 (10:07→22:00)
--- NOTE | 2020-05-10 21:01 | Progress Note ---
Assessment and Plan --Acute hypoxemic respiratory failure Due to covid19 PNA cont supplemental oxygen, pulse oximetry, nebulizer therapy, prone positioning while in bed, noninvasive positive pressure ventilation as clinically indicated. -- RLL Pneumonia due to COVID 19 cont nebulizer therapy, supplemental oxygen, pulse oximetry, start on dexamethasone, will follow ID recommendation monitor inflammatory markers --2019 novel coronavirus infection COVID 19 PCR positive Coronavirus protocol: Contact precautions, isolation precautions, supplemental oxygen, pulse oximetry, nebulizer therapy, prone positioning while in bed, -- BPH (benign prostatic hyperplasia Continue Flomax, supportive care. --DVT prophylaxis SCD to bilateral lower extremities while in bed, prophylactic anticoagulation per covid protocol. -- Advance care planning Disease education conducted, patient is full code, prognosis discussed, care plan discussed, patient knowledges understanding and agreement with care plan, +30 minutes. 05/09: COVID 19 Positive. start on dexamethasone, remdesivir, stop abx, consult ID 05/10: cont dexamethasone, remdesivir. follow inflammatory markers. assess for home O2 requirement Subjective Date of service: 05/10/20 Interval history: Patient seen and examined he is intermittently on 2L n/c denies any chest pain c/o mild cough Tolerating diet Objective - Exam Narrative Exam: General appearance: Present: no acute distress, well-nourished - EENT Eyes: PERRL, EOM intact ENT: hearing intact, clear oral mucosa Ears: bilateral: normal - Neck Neck: supple, normal ROM - Respiratory Respiratory effort: normal Respiratory: bilateral: rales - Cardiovascular Rhythm: regular Heart Sounds: Present: S1 & S2. Absent: gallop, rub Extremities: pulses intact, No edema, normal color, Full ROM - Gastrointestinal General gastrointestinal: Present: soft, non-tender, non-distended, normal bowel sounds - Integumentary Integumentary: clear, warm, dry - Musculoskeletal Musculoskeletal: 1, strength equal bilaterally - Neurologic Neurologic: moves all extremities - Psychiatric Psychiatric: memory intact, appropriate mood/affect, intact judgment & insight - Constitutional Vitals: Vital Signs - 12hr 05/10/20 05/10/20 05/10/20 10:00 10:59 16:48 Temperature 97.9 F Pulse Rate 61 76 Respiratory 20 18 Rate Blood Pressure 147/87 139/88 O2 Sat by Pulse 96 95 96 Oximetry - Labs CBC & Chem 7: 05/09/20 04:24 05/09/20 04:24 HEART Score - HEART Score Troponin: Troponin T < 0.010 ng/mL (0.00-0.029) 05/08/20 12:13
[2020-05-10] MEDS: SODIUM CHLORIDE 0.9% 50 ML IVPB IV SCH (22:11)
[2020-05-10] MEDS ORDERED: REMDESIVIR 200 MG in SODIUM CHLORIDE 0.9% 250ML 250 ML IV ONE (22:30)
[2020-05-10] MEDS ORDERED: REMDESIVIR 100 MG VIAL IV ONE (22:30)
[2020-05-11 07:24] LABS: BUN/Creatinine Ratio 20; Blood Urea Nitrogen 16 mg/dL (9-20); Calcium 8.7 mg/dL (8.4-10.2); Hemolysis Index 23
[2020-05-11] MEDS: ASCORBIC ACID 500 MG TAB PO SCH ×2 (10:28→22:20)
[2020-05-11] MEDS: TAMSULOSIN 0.4 MG CAP PO SCH (10:28)
[2020-05-11] MEDS: DEXAMETHASONE 2 MG TAB PO SCH (10:28)
[2020-05-11] MEDS: CHOLECALCIFEROL (VIT D3) 5,000 UNIT TAB PO SCH (10:29)
[2020-05-11] MEDS: valACYclovir 500 MG TAB PO SCH (10:29)
[2020-05-11] MEDS: APIXABAN 5 MG TAB PO SCH ×2 (10:29→22:20)
[2020-05-11] MEDS: ZINC SULFATE 220 MG CAP PO SCH ×2 (10:29→22:20)
[2020-05-11] MEDS: FAMOTIDINE 10 MG TAB PO SCH ×2 (10:29→22:20)
[2020-05-11 15:59] LABS: C-Reactive Protein 1.9 mg/dL (0.00-1.30)
--- NOTE | 2020-05-11 18:16 | Progress Note ---
Assessment and Plan --Acute hypoxemic respiratory failure Due to covid19 PNA cont supplemental oxygen, pulse oximetry, nebulizer therapy, prone positioning while in bed, noninvasive positive pressure ventilation as clinically indicated. -- RLL Pneumonia due to COVID 19 cont nebulizer therapy, supplemental oxygen, pulse oximetry, start on dexamethasone, will follow ID recommendation monitor inflammatory markers --2019 novel coronavirus infection COVID 19 PCR positive Coronavirus protocol: Contact precautions, isolation precautions, supplemental oxygen, pulse oximetry, nebulizer therapy, prone positioning while in bed, -- BPH (benign prostatic hyperplasia Continue Flomax, supportive care. --DVT prophylaxis SCD to bilateral lower extremities while in bed, prophylactic anticoagulation per covid protocol. -- Advance care planning Disease education conducted, patient is full code, prognosis discussed, care plan discussed, patient knowledges understanding and agreement with care plan, +30 minutes. 05/09: COVID 19 Positive. start on dexamethasone, remdesivir if recommended by ID, stop abx, 05/10: cont dexamethasone, remdesivir. follow inflammatory markers. assess for home O2 requirement 05/11: Ambulatory O2 dropped to 85%. Continue remdesivir - day 2 and dexamethasone, need home O2 arrangement on discharge Subjective Date of service: 05/11/20 Interval history: Patient seen and examined he is on 2L n/c denies any chest pain Tolerating diet Objective - Exam Narrative Exam: General appearance: Present: no acute distress, well-nourished - EENT Eyes: PERRL, EOM intact ENT: hearing intact, clear oral mucosa Ears: bilateral: normal - Neck Neck: supple, normal ROM - Respiratory Respiratory effort: normal Respiratory: bilateral: rales - Cardiovascular Rhythm: regular Heart Sounds: Present: S1 & S2. Absent: gallop, rub Extremities: pulses intact, No edema, normal color, Full ROM - Gastrointestinal General gastrointestinal: Present: soft, non-tender, non-distended, normal bowel sounds - Integumentary Integumentary: clear, warm, dry - Musculoskeletal Musculoskeletal: 1, strength equal bilaterally - Neurologic Neurologic: moves all extremities - Psychiatric Psychiatric: memory intact, appropriate mood/affect, intact judgment & insight - Constitutional Vitals: Vital Signs - 12hr 05/11/20 05/11/20 05/11/20 08:28 11:00 14:00 Temperature 97.3 F L Pulse Rate 78 Respiratory 22 Rate Blood Pressure 134/85 O2 Sat by Pulse 94 96 85 Oximetry - Labs CBC & Chem 7: 05/09/20 04:24 05/11/20 04:48 Labs: Abnormal lab results 05/11/20 05/11/20 05/11/20 Range/Units 04:48 14:37 14:37 D-Dimer (0-234) ng/mlDDU Chloride 110.5 H (98-107) mmol/L Carbon Dioxide 21 L (22-30) mmol/L Glucose 133 H (75-100) mg/dL Ferritin 1473.0 H (30.0-300.0) ng/mL Lactate Dehydrogenase 407 H (91-180) units/L C-Reactive Protein 1.90 H (0.00-1.30) mg/dL 05/11/20 Range/Units 14:37 D-Dimer 788.41 H (0-234) ng/mlDDU Chloride (98-107) mmol/L Carbon Dioxide (22-30) mmol/L Glucose (75-100) mg/dL Ferritin (30.0-300.0) ng/mL Lactate Dehydrogenase (91-180) units/L C-Reactive Protein (0.00-1.30) mg/dL HEART Score - HEART Score Troponin: Troponin T < 0.010 ng/mL (0.00-0.029) 05/08/20 12:13
[2020-05-11] MEDS: SODIUM CHLORIDE 0.9% 50 ML IVPB IV SCH (22:20)
[2020-05-11] MEDS: REMDESIVIR 100 MG in SODIUM CHLORIDE 0.9% 250ML 250 ML IV SCH (22:20)
[2020-05-12] MEDS: TAMSULOSIN 0.4 MG CAP PO SCH (10:32)
[2020-05-12] MEDS: FAMOTIDINE 10 MG TAB PO SCH ×2 (10:32→21:50)
[2020-05-12] MEDS: valACYclovir 500 MG TAB PO SCH (10:33)
[2020-05-12] MEDS: ZINC SULFATE 220 MG CAP PO SCH ×2 (10:34→21:50)
[2020-05-12] MEDS: ASCORBIC ACID 500 MG TAB PO SCH ×2 (10:34→21:49)
[2020-05-12] MEDS: APIXABAN 5 MG TAB PO SCH ×2 (10:34→21:49)
[2020-05-12] MEDS: DEXAMETHASONE 2 MG TAB PO SCH (10:34)
--- NOTE | 2020-05-12 11:48 | Progress Note ---
Assessment and Plan --Acute hypoxemic respiratory failure Due to covid19 PNA cont supplemental oxygen, pulse oximetry, nebulizer therapy, prone positioning while in bed, noninvasive positive pressure ventilation as clinically indicated. -- RLL Pneumonia due to COVID 19 cont nebulizer therapy, supplemental oxygen, pulse oximetry, start on dexamethasone, will follow ID recommendation monitor inflammatory markers --2019 novel coronavirus infection COVID 19 PCR positive Coronavirus protocol: Contact precautions, isolation precautions, supplemental oxygen, pulse oximetry, nebulizer therapy, prone positioning while in bed, -- BPH (benign prostatic hyperplasia Continue Flomax, supportive care. --DVT prophylaxis SCD to bilateral lower extremities while in bed, prophylactic anticoagulation per covid protocol. -- Advance care planning Disease education conducted, patient is full code, prognosis discussed, care plan discussed, patient knowledges understanding and agreement with care plan, +30 minutes. 05/09: COVID 19 Positive. start on dexamethasone, remdesivir if recommended by ID, stop abx, 05/10: cont dexamethasone, remdesivir. follow inflammatory markers. assess for home O2 requirement 05/11: Ambulatory O2 dropped to 85%. Continue remdesivir - day 2 and dexamethasone, need home O2 arrangement on discharge 05/12: cont remdesivir, patient remains hypoxic on ambulation, need 2 L home O2 on discharge Subjective Date of service: 05/12/20 Interval history: Patient seen and examined he is on 2L n/c denies any chest pain Tolerating diet Objective - Exam Narrative Exam: General appearance: Present: no acute distress, well-nourished - EENT Eyes: PERRL, EOM intact ENT: hearing intact, clear oral mucosa Ears: bilateral: normal - Neck Neck: supple, normal ROM - Respiratory Respiratory effort: normal Respiratory: bilateral: rales - Cardiovascular Rhythm: regular Heart Sounds: Present: S1 & S2. Absent: gallop, rub Extremities: pulses intact, No edema, normal color, Full ROM - Gastrointestinal General gastrointestinal: Present: soft, non-tender, non-distended, normal bowel sounds - Integumentary Integumentary: clear, warm, dry - Musculoskeletal Musculoskeletal: 1, strength equal bilaterally - Neurologic Neurologic: moves all extremities - Psychiatric Psychiatric: memory intact, appropriate mood/affect, intact judgment & insight - Constitutional Vitals: Vital Signs - 12hr 05/12/20 05/12/20 05/12/20 01:04 05:24 08:15 Temperature 97.8 F Pulse Rate 46 L 53 L Respiratory 24 22 Rate Blood Pressure 141/85 143/90 O2 Sat by Pulse 97 90 93 Oximetry - Labs CBC & Chem 7: 05/09/20 04:24 05/11/20 04:48 Labs: Abnormal lab results 05/11/20 05/11/20 05/11/20 Range/Units 14:37 14:37 14:37 D-Dimer 788.41 H (0-234) ng/mlDDU POC Glucose (70-105) mg/dL Ferritin 1473.0 H (30.0-300.0) ng/mL Lactate Dehydrogenase 407 H (91-180) units/L C-Reactive Protein 1.90 H (0.00-1.30) mg/dL 05/12/20 Range/Units 11:38 D-Dimer (0-234) ng/mlDDU POC Glucose 125 H (70-105) mg/dL Ferritin (30.0-300.0) ng/mL Lactate Dehydrogenase (91-180) units/L C-Reactive Protein (0.00-1.30) mg/dL HEART Score - HEART Score Troponin: Troponin T < 0.010 ng/mL (0.00-0.029) 05/08/20 12:13
--- NOTE | 2020-05-12 14:25 | Progress Note ---
Assessment and Plan Cultures: SARS CoV2 PCR: Positive Blood culture: No growth A/P: 64/M with: #COVID-19 pneumonia: noted on CXR. WBC normal. Procal is low. Inflammatory markers elevated. Improving. #Acute hypoxic respiratory failure: On supplemental oxygen by nasal cannula. Improving, now on room air. Ambulatory O2 sat dropped to 80s. Recs: -Continue remdesivir D2 of 5 -Continue dexamethasone total 10 days -Tomorrow check 6-minute walking O2 sat test, if passes okay to discharge, if not consider arranging home O2 Monica Mancia MD [facility] ([facility]) Office [phone] Subjective Date of service: 05/12/20 Principal diagnosis: COVID-19 Interval history: Patient currently on room air, no fever. Objective - Exam Narrative Exam: Deferred to minimize COVID-19 transmission in the setting of pandemic. - Constitutional Vitals: Vital Signs Temp Pulse Resp BP Pulse Ox 97.6 F 56 L 20 138/83 87 05/12/20 11:40 05/12/20 11:40 05/12/20 11:40 05/12/20 11:40 05/12/20 14:21 Temperature -Last 24 Hours Temperature 97.6 F Temperature 97.8 F Temperature 98.6 F - Labs CBC & Chem 7: 05/09/20 04:24 05/11/20 04:48 Labs: Abnormal lab results 05/11/20 05/11/20 05/11/20 Range/Units 14:37 14:37 14:37 D-Dimer 788.41 H (0-234) ng/mlDDU POC Glucose (70-105) mg/dL Ferritin 1473.0 H (30.0-300.0) ng/mL Lactate Dehydrogenase 407 H (91-180) units/L C-Reactive Protein 1.90 H (0.00-1.30) mg/dL 05/12/20 Range/Units 11:38 D-Dimer (0-234) ng/mlDDU POC Glucose 125 H (70-105) mg/dL Ferritin (30.0-300.0) ng/mL Lactate Dehydrogenase (91-180) units/L C-Reactive Protein (0.00-1.30) mg/dL
[2020-05-12] MEDS: NON-FORMULARY EACH (Mirabegron [Myrbetriq] 50 MG Tab.Er.24h) PO SCH ×3 (15:45→15:46)
[2020-05-12] MEDS: CHOLECALCIFEROL (VIT D3) 5,000 UNIT TAB PO SCH (15:49)
[2020-05-12] MEDS: REMDESIVIR 100 MG in SODIUM CHLORIDE 0.9% 250ML 250 ML IV SCH (21:50)
[2020-05-12] MEDS: SODIUM CHLORIDE 0.9% 50 ML IVPB IV SCH (21:50)
[2020-05-13] MEDS: ZINC SULFATE 220 MG CAP PO SCH (09:34)
[2020-05-13] MEDS: ASCORBIC ACID 500 MG TAB PO SCH (09:34)
[2020-05-13] MEDS: APIXABAN 5 MG TAB PO SCH (09:34)
[2020-05-13] MEDS: valACYclovir 500 MG TAB PO SCH (09:34)
[2020-05-13] MEDS: TAMSULOSIN 0.4 MG CAP PO SCH (09:34)
[2020-05-13] MEDS: CHOLECALCIFEROL (VIT D3) 5,000 UNIT TAB PO SCH (09:34)
[2020-05-13] MEDS: DEXAMETHASONE 2 MG TAB PO SCH (09:34)
[2020-05-13] MEDS: NON-FORMULARY EACH (Mirabegron [Myrbetriq] 50 MG Tab.Er.24h) PO SCH (09:35)
[2020-05-13] MEDS: FAMOTIDINE 10 MG TAB PO SCH (09:37)
--- NOTE | 2020-05-13 13:09 | Progress Note ---
Assessment and Plan Cultures: SARS CoV2 PCR: Positive Blood culture: No growth A/P: 64/M with: #COVID-19 pneumonia: noted on CXR. WBC normal. Procal is low. Inflammatory markers elevated. Improving. #Acute hypoxic respiratory failure: On supplemental oxygen by nasal cannula. Improving, now on room air. Ambulatory O2 sat dropped to 80s. Recs: -remdesivir D3 -Continue dexamethasone total 10 days -Okay for discharge home from ID standpoint with supplemental oxygenation -Arrange follow-up with PCP or pulmonary to eventually wean off oxygen Will sign off. Please call with questions. Brigitte Orellana MD, FACP [facility] ([facility]) O: [phone] F: [phone] Subjective Date of service: 05/13/20 Principal diagnosis: COVID-19 Interval history: No fever. Desaturated on ambulation, is being set up with home oxygen supplementation. Objective - Exam Narrative Exam: Physical Exam (reviewed in chart to minimize risk of transmission) Constitutional: deferred Head, Ears, Nose: deferred Eyes: deferred Neck: deferred Oral: deferred Cardiovascular: deferred Respiratory: deferred GI: deferred Musculoskeletal: deferred Skin: deferred Hem/Lymphatic: deferred Psych: deferred Neurological: deferred - Constitutional Vitals: Vital Signs Temp Pulse Resp BP Pulse Ox 98.7 F 64 20 136/74 96 05/13/20 11:18 05/13/20 11:18 05/13/20 11:18 05/13/20 11:18 05/13/20 11:18 Temperature -Last 24 Hours Temperature 98.7 F Temperature 98.2 F Temperature 97.6 F Temperature 97.6 F - Labs CBC & Chem 7: 05/09/20 04:24 05/11/20 04:48
--- NOTE | 2020-05-13 14:05 | Discharge Summary ---
Providers - Providers Date of Admission: 05/08/20 15:30 Date of discharge: 05/13/20 Attending physician: NANI AMBRIZ 05/08/20 14:56 Consult to Physician [CONS] Urgent Comment: Consulting Provider: JAYMIE CUNNINGHAM Physician Instructions: Reason For Exam: pneumonia, hypoxia, r/o covid Primary care physician: BELT SPLICER Hospitalization Condition: Stable Disposition: DC-01 TO HOME OR SELFCARE Time spent for discharge: 34 minutes Core Measure Documentation - Palliative Care Palliative Care/ Comfort Measures: Not Applicable - Core Measures Any of the following diagnoses?: none Exam - Physical Exam Narrative exam: General appearance: Present: no acute distress, well-nourished - EENT Eyes: PERRL, EOM intact ENT: hearing intact, clear oral mucosa Ears: bilateral: normal - Neck Neck: supple, normal ROM - Respiratory Respiratory effort: normal Respiratory: bilateral: rales - Cardiovascular Rhythm: regular Heart Sounds: Present: S1 & S2. Absent: gallop, rub Extremities: pulses intact, No edema, normal color, Full ROM - Gastrointestinal General gastrointestinal: Present: soft, non-tender, non-distended, normal bowel sounds - Integumentary Integumentary: clear, warm, dry - Musculoskeletal Musculoskeletal: 1, strength equal bilaterally - Neurologic Neurologic: moves all extremities - Psychiatric Psychiatric: memory intact, appropriate mood/affect, intact judgment & insight - Constitutional Vitals: Temp Pulse Resp BP Pulse Ox 98.7 F 64 20 136/74 96 05/13/20 11:18 05/13/20 11:18 05/13/20 11:18 05/13/20 11:18 05/13/20 11:18 Plan Activity: advance as tolerated Weight Bearing Status: Weight Bear as Tolerated Diet: regular Follow up with: PRIMARY CAREMD [Primary Care Provider] - 3-5 Days JEAN PIERRE MART MD [Staff Physician] - 7 Days Prescriptions: dexAMETHasone [Decadron] 6 mg PO DAILY #7 tablet Apixaban [Eliquis] 5 mg PO Q12HR #20 tablet Famotidine [Pepcid] 10 mg PO BID #20 tablet Ascorbic Acid [Vitamin C] 1,000 mg PO BID #20 tablet Cholecalciferol (Vitamin D3) [Vitamin D3] 5,000 unit PO DAILY #10 tablet Zinc Sulfate 220 mg PO BID #20 capsule
[2020-05-13] MEDS: REMDESIVIR 100 MG in SODIUM CHLORIDE 0.9% 250ML 250 ML IV SCH (17:00)
[2020-05-13] MEDS: SODIUM CHLORIDE 0.9% 50 ML IVPB IV SCH (17:00)
[2020-05-13 21:59] VITALS: BP 134/81
== END 2020-05-13 22:27 | disposition home or self-care (01) | DRG 177 ==
LOC: ED 10:23 → 3A 15:30
PROVIDERS: ADMIT Internal Medicine; ATTEND Internal Medicine
PROC: XW033E5 Introduction of Remdesivir Anti-infective into Peripheral Vein, Percutaneous Approach, New Technology Group 5 (ICD-10-PCS; principal; 2020-05-10)
DX: U07.1 COVID-19 (principal); J96.01 Acute respiratory failure with hypoxia; J12.89 Other viral pneumonia; E87.0 Hyperosmolality and hypernatremia; E87.2 Acidosis; N40.0 Benign prostatic hyperplasia without lower urinary tract symptoms
CPT/HCPCS: 36415; 71046; 80048; 80053; 81001; 82140; 82728; 82962; 83615; 83880; 84145; 84484; 85025; 85379; 86140; 87040; 93005; 94760; 96365; 96375; G0378; J0456; J0696; J1100; J2920; J7030; J7050; J8540; U0003

== ENCOUNTER 2020-06-25 12:16 | Outpatient (CLI) | payer BC ==
[2020-06-25 13:30] LABS: Blood Urea Nitrogen 11 mg/dL (9-20)
--- NOTE | 2020-06-25 18:06 | Cat Scan Report ---
CT ABDOMEN AND PELVIS WITHOUT AND WITH CONTRAST INDICATION / CLINICAL INFORMATION: Gross hematuria. TECHNIQUE: Axial CT images were obtained through the abdomen and pelvis before and after 100 cc Omnipaque [address] scans at this location are performed using CT dose reduction for ALARA by means of automated exposure control. COMPARISON: None available. FINDINGS: LOWER CHEST: There are mild patchy peripheral groundglass density changes throughout the visualized l shaan bases, right greater than left. LIVER: No significant abnormality. GALLBLADDER: No significant abnormality. PANCREAS: No significant abnormality. SPLEEN: No significant abnormality. ADRENALS: No significant abnormality. KIDNEYS / URETERS: No significant abnormality. No nephroureterolithiasis or obstructive uropathy. URINARY BLADDER: No significant abnormality. REPRODUCTIVE ORGANS: No significant abnormality. STOMACH / SMALL BOWEL: No significant abnormality. COLON: No significant abnormality. APPENDIX: No significant abnormality. PERITONEUM: No free fluid. No free air. No fluid collection. LYMPH NODES: No significant adenopathy. AORTA / ARTERIES: No significant abnormality. IVC / VEINS: No significant abnormality. SKELETAL SYSTEM: No significant abnormality. ADDITIONAL FINDINGS: None. IMPRESSION: 1. No acute abdominopelvic abnormality. Specifically, no nephroureterolithiasis or obstructive uropat hy. 2. Mild patchy peripheral groundglass density changes within the visualized lung bases may be chronic , although an infectious process including atypical and viral etiologies should be considered. Signer Name: Anthony Perera MD Signed: 06/25/2020 6:01 PM Workstation Name: [id number]
== END 2020-06-25 12:17 | disposition home or self-care (01) ==
LOC: CT 12:16
PROVIDERS: ATTEND Urology
DX: R91.8 Other nonspecific abnormal finding of lung field (principal)
CPT/HCPCS: 36415; 74178; 82565; 84520; Q9967

== ENCOUNTER 2021-01-10 11:32 | Outpatient (CLI) | payer BC ==
[2021-01-10 12:28] LABS: Basophils % (Auto) 0.9 % (0.0-1.8); Eosinophils # (Auto) 0.2 K/mm3 (0.0-0.4); Eosinophils % (Auto) 7.5 % (0.0-4.3); Hematocrit 42.7 % (35.5-45.6); Hemoglobin 14.2 gm/dl (11.8-15.2); Lymphocytes # (Auto) 1.4 K/mm3 (1.2-5.4); Mean Corpuscular HGB Conc 33 % (32-34); Mean Corpuscular Volume 94 fl (84-94); Monocytes # (Auto) 0.3 K/mm3 (0.0-0.8); Monocytes % (Auto) 9.6 % (0.0-7.3); Platelet Count 175 K/mm3 (140-440); Red Blood Count 4.56 M/mm3 (3.65-5.03); Red Cell Distribution Width 14.9 % (13.2-15.2)
[2021-01-10 12:37] LABS: Alanine Aminotransferase 19 units/L (7-56); Albumin 4.5 g/dL (3.9-5); BUN/Creatinine Ratio 17; Blood Urea Nitrogen 15 mg/dL (9-20); Calcium 9.5 mg/dL (8.4-10.2); Chol/HDL Ratio 2.67 %; HDL Cholesterol 77 mg/dL (40-59); Hemolysis Index 7; LDL Cholesterol,Direct 131 mg/dL (50-130)
== END 2021-01-10 11:33 | disposition home or self-care (01) ==
LOC: LAB 11:32
PROVIDERS: ATTEND Internal Medicine
DX: Z12.5 Encounter for screening for malignant neoplasm of prostate (principal); Z00.00 Encounter for general adult medical examination without abnormal findings
CPT/HCPCS: 36415; 80053; 80061; 82306; 83036; 84153; 84439; 84443; 85025

== ENCOUNTER 2021-07-30 11:54 | Outpatient (CLI) | payer BC ==
[2021-07-30 12:44] LABS: Basophils # (Auto) 0.1 K/mm3 (0.0-0.1); Basophils % (Auto) 1.4 % (0.0-1.8); Eosinophils # (Auto) 0.4 K/mm3 (0.0-0.4); Eosinophils % (Auto) 10.3 % (0.0-4.3); Hematocrit 43.4 % (35.5-45.6); Hemoglobin 15.1 gm/dl (11.8-15.2); Lymphocytes % (Auto) 45.5 % (13.4-35.0); Mean Corpuscular HGB Conc 35 % (32-34); Mean Corpuscular Volume 93 fl (84-94); Monocytes # (Auto) 0.3 K/mm3 (0.0-0.8); Monocytes % (Auto) 7.3 % (0.0-7.3); Red Blood Count 4.69 M/mm3 (3.65-5.03); Red Cell Distribution Width 14.4 % (13.2-15.2)
[2021-07-30 12:46] LABS: Platelet Count 167 K/mm3 (140-440)
[2021-07-30 13:48] LABS: Alanine Aminotransferase 23 units/L (7-56); Albumin 4.7 g/dL (3.9-5); BUN/Creatinine Ratio 10; Blood Urea Nitrogen 10 mg/dL (9-20); Calcium 9.3 mg/dL (8.4-10.2); Hemolysis Index 23
[2021-07-30 23:09] LABS: Chol/HDL Ratio 2.73 %; HDL Cholesterol 83 mg/dL (40-59); LDL Cholesterol,Direct 138 mg/dL (50-130)
== END 2021-07-30 11:55 | disposition home or self-care (01) ==
LOC: LAB 11:54
PROVIDERS: ATTEND Internal Medicine
DX: Z00.00 Encounter for general adult medical examination without abnormal findings (principal); R73.03 Prediabetes; E55.9 Vitamin D deficiency, unspecified; R53.83 Other fatigue; E78.5 Hyperlipidemia, unspecified
CPT/HCPCS: 36415; 80053; 80061; 82306; 83036; 84153; 84443; 85025

== ENCOUNTER 2022-01-02 13:59 | Outpatient (CLI) | payer BC | END 2022-01-02 14:00 | disposition home or self-care (01) | LOC: LAB 13:59 | PROVIDERS: ATTEND Urology | DX: N40.0 Benign prostatic hyperplasia without lower urinary tract symptoms (principal) | CPT/HCPCS: 36415; 84153; 84403 ==

== ENCOUNTER 2022-02-12 11:57 | Outpatient (CLI) | payer BC ==
[2022-02-12 13:16] LABS: Chol/HDL Ratio 2.88 %
== END 2022-02-12 11:58 | disposition home or self-care (01) ==
LOC: LAB 11:57
PROVIDERS: ATTEND Internal Medicine
DX: E78.5 Hyperlipidemia, unspecified (principal); R73.03 Prediabetes
CPT/HCPCS: 36415; 80061; 83036